=== PATIENT | female | born 1965 | race Caucasian/White ===

== ENCOUNTER → 2021-03-05 | Outpatient (CLI) | payer MEDICARE, OTHER ==
[2021-03-05 14:03] LABS: ABSOLUTE RETIC # 69 10e9/uL (24-90); BASOPHILS # (AUTO) 0.1 10^3/uL (0.0-0.1); BASOPHILS % (AUTO) 1 % (0-10); EOSINOPHILS # (AUTO) 0.1 10^3/uL (0.0-0.3); EOSINOPHILS % (AUTO) 1 % (0-10); HEMATOCRIT 44 % (35-52); HEMOGLOBIN 15.2 g/dL (11.5-16.0); LYMPHOCYTES # (AUTO) 1.7 10^3/uL (1.0-4.0); LYMPHOCYTES % (AUTO) 20 % (12-44); MEAN CORPUSCULAR HEMOGLOBIN 34 pg (25-34); MEAN CORPUSCULAR HGB CONC 35 g/dL (32-36); MEAN CORPUSCULAR VOLUME 99 fL (80-99); MEAN PLATELET VOLUME 9.2 fL (9.0-12.2); MONOCYTES # (AUTO) 0.7 10^3/uL (0.0-1.0); MONOCYTES % (AUTO) 8 % (0-12); NEUTROPHILS # (AUTO) 5.9 10^3/uL (1.8-7.8); NEUTROPHILS % (AUTO) 71 % (42-75); PLATELET COUNT 301 10^3/uL (130-400); RETICULOCYTE % 1.54 % (0.50-2.40); WHITE BLOOD COUNT 8.4 10^3/uL (4.3-11.0)
[2021-03-05 14:57] LABS: BAND NEUTROPHILS 0 %; BASOPHILS % (MANUAL) 0 %; EOSINOPHILS % (MANUAL) 0 %; LYMPHOCYTES % (MANUAL) 22 %; MONOCYTES % (MANUAL) 5 %; NEUTROPHILS % (MANUAL) 73 %
[2021-03-05 14:58] LABS: RBC MORPH NORMAL
== END ==
LOC: EDBD 13:26 → LAB 13:26
PROVIDERS: ATTEND Nurse Practitioner Family
DX: D72.829 Elevated white blood cell count, unspecified (principal)
CPT/HCPCS: 36415; 85007; 85027; 85045; 85055

== ENCOUNTER → 2023-07-11 | Outpatient (CLI) | payer MEDICARE ==
--- NOTE | 2023-07-11 11:48 | Diagnostic Imaging Report ---
CT Lung Screening INDICATION: Personal history of nicotine abuse. TECHNIQUE: Noncontrast, low-dose CT imaging performed according to the lung cancer screening protocol. Auto Exposure Controls were utilize during the CT exam to meet ALARA standards for radiation dose reduction. COMPARISON: None FINDINGS: The lungs are clear. No mass or infiltrate is identified. There is also no significant pleural or pericardial fluid. There is moderate aortic and great vessel atherosclerotic calcification as well as coronary artery disease. There are anti-dependent mural based filling defects within the left mainstem bronchus. This could be related to mucous. Similar findings are seen in the dependent portion of the trachea. Surgical findings are seen in the right humerus. There is possible loculated fluid in the pericardial space anteriorly. Note is also made of right renal atrophy. There is right convexity curvature of the lower thoracic spine. Otherwise, the vertebral body heights and disc spaces are maintained. IMPRESSION: No suspicious pulmonary mass or infiltrate is identified. LUNG-RADS CATEGORY:2 MODIFIER: OTHER SIGNIFICANT FINDINGS:Filling defects are present within the trachea and left mainstem bronchus which could be related to mucous. Clinical correlation is recommended. If there are symptoms related to this finding, bronchoscopy may be of use. Note is also made of atherosclerotic disease of great vessels in the thorax including coronary arteries. Dictated by: Dictated on workstation # [id number]
== END ==
LOC: RAD 10:23
PROVIDERS: ATTEND Nurse Practitioner Family
DX: Z12.2 Encounter for screening for malignant neoplasm of respiratory organs (principal); Z87.891 Personal history of nicotine dependence
CPT/HCPCS: 71271